=== PATIENT | female | born 1990 | race Caucasian/White ===

== ENCOUNTER 2017-03-16 10:43 | Observation (INO) | payer OTHER ==
[2017-03-16 10:49] VITALS: TEMP 97.5; BMI 44.6
[2017-03-16] MEDS ORDERED: SODIUM CHLORIDE 1,000 ML IV STA (12:21)
--- NOTE | 2017-03-16 12:23 | PDOC ---
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 Patient states that she was driving on the [place] today as she started to feel dizzy as if the highway was moving side to side at 09: 15AM. Patient states that she pulled over and had some water waiting for the dizzy spell to pass. Patient was on the phone with a friend that stated that her speech was slow but she was not slurring. Patient states that she started to feel better and was driving again as she experienced the same symptoms after which she took the next exit and was picked up by family. Patient states that she is not dizzy anymore while in the ED, but reports generalized weakness and feeling floaty. Patient reports a slight headache that is usual for her when she is on her menses. 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 Patient reports significant vision changes over the couple of months. Patient denies any LOC, head trauma or any recent trauma. Pt was in fast track first at 11:15 AM, and then brought over to the core at 12: 15P Pt seen by me when brought over from FT <Genevieve Rodriguez - Last Filed: 03/16/17 12:36> <Yamini Rodrigues - Last Filed: 03/16/17 21:14> - General Chief Complaint: Lightheaded Stated Complaint: DIZZINESS Time Seen by Provider: 03/16/17 11:17 NIH Stroke Scale - Last Known Well Date/Time & Onset Date Last Known Well: 03/16/17 Time Last Known Well: 09:15 - Initial Evaluation Level of consciousness: Alert Ask patient the month and their age: Answers both correctly Ask patient to open & close eyes; make fist and let go: Obeys both correctly Best gaze (horizontal eye movement): Normal Visual field testing: No visual field loss Facial paresis (Show teeth/raise eyebrows/close eyes tight): Normal symmetrical movement Motor Function: Left Arm: Drift Motor Function: Right Arm: Normal (extends arm 90 (or 45) degrees for 10 seconds without drift Motor Function: Left Leg: Normal (extends leg 30 degrees for 5 seconds without drift) Motor Function: Right Leg: Normal (extends leg 30 degrees for 5 seconds without drift) Limb Ataxia: No ataxia Sensory(Use pinprick test arms,legs,trunk,face/side to side): Normal Best language (Describe picture, name items, read sentences): No Aphasia Dysarthria (read several words): Normal articulation Extinction and Inattention: No abnormality - Total Score NIH Stroke Scale Score: 1 <Yamini Rodrigues - Last Filed: 03/16/17 21:14> Past History <Genevieve Rodriguez - Last Filed: 03/16/17 12:38> - Past Medical History Other medical history: BENIGN TUMOR IN PINEAL GLAND - Surgical History Cholecystectomy: Yes - Psycho/Social/Smoking Cessation Hx Suicidal Ideation: No Smoking History: Never smoked Hx Alcohol Use: No Drug/Substance Use Hx: No <aYmini Rodrigues - Last Filed: 03/16/17 21:14> - Past Medical History Allergies/Adverse Reactions: Allergies Allergy/AdvReac Type Severity Reaction Status Date / Time No Known Allergies Allergy Verified 03/16/17 10:52 Home Medications: Ambulatory Orders NK [No Known Home Medication] 03/16/17 *Physical Exam - Vital Signs Last Vital Signs Temp Pulse Resp BP Pulse Ox 97.5 F L 91 H 18 147/69 99 03/16/17 10:43 03/16/17 10:43 03/16/17 10:43 03/16/17 10:43 03/16/17 10:43 <Genevieve Rodriguez - Last Filed: 03/16/17 12:38> - Vital Signs Last Vital Signs Temp Pulse Resp BP Pulse Ox 97.5 F L 91 H 18 147/69 99 03/16/17 10:43 03/16/17 10:43 03/16/17 10:43 03/16/17 10:43 03/16/17 10:43 - Physical Exam Comments: 03/16/17 12:26 Physical exam Last Vital Signs Temp Pulse Resp BP Pulse Ox 97.5 F L 91 H 18 147/69 99 03/16/17 10:43 03/16/17 10:43 03/16/17 10:43 03/16/17 10:43 03/16/17 10:43 GENERAL: The patient is awake, alert, and fully oriented, and in no apparent distress. HEAD: Normal with no signs of trauma. EYES: Pupils equal, round and reactive to light, extraocular movements intact, sclera anicteric, conjunctiva are normal. ENT: nares patent, oropharynx clear without exudates. Moist mucous membranes. NECK: Normal range of motion, supple LUNGS: Breath sounds equal, clear to auscultation bilaterally. No wheezes, and no crackles. HEART: Regular rate and rhythm, normal S1 and S2 without murmur, rub or gallop. ABDOMEN: Soft, nontender, normoactive bowel sounds. No guarding, no rebound. No masses appreciated. EXTREMITIES: Normal range of motion, no edema. No clubbing or cyanosis. No cords, erythema, or tenderness. NEURO: Mental status: The patient is oriented x3. Cranial nerves: Cranial nerves II through XII are intact Motor: Strength is 5 out of 5 in the right upper extremity, and 4 out of 5 in the left upper extremity with a subtle drift. The lower extremities are 5 over 5 in all muscle groups. Sensation: Sensation is intact to light touch throughout. Cerebellar: Qzuzrk-rrpeol-mibh is normal in both upper extremities. Heel-knee- fang is normal in both lower extremities. Gait: Normal. Heel and toe walking and tandem walking causes patient to lose her balance PSYCH: Normal mood, normal affect. 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 Mendoza approved an MRI, and will call neurology NIH stroke scale 1 03/16/17 12:[address] TrejoJinisrr-[id number] is not a TPA candidate This may be a vertebrobasilar migraine Awaiting MRI 03/16/17 15:05 EKG Normal sinus rhythm, with mild sinus arrhythmia Normal AV and IV conduction time Normal QRS duration Normal QTC Nonspecific ST-T is No old EKG is available for comparison at this time 03/16/17 16:05 Case and all results discussed with Dr. Soto-will admit Neurology will see patient in consultation Patient still awaiting MRI/MRA Will check the vertebral arteries, as well as the posterior circulation, as well as her pineal gland tumor, and rule out a punctate stroke or other lesion MRI/MRA results MRI/BRAIN MRI WITH CONTRAST [id number] MRI/BRAIN MRA W/O CONTRAST [id number] MRI/NECK MRA W/O CONTRAST History of tiny tumor. Vertigo. MRI of the brain without and following intravenous contrast. Multiplanar T1- T2 sequences were obtained followed by postcontrast T1 axial, coronal and sagittal images. Compared to prior MRI of the brain dated 12/27/2013 previously described prominent pineal gland is again seen now measuring approximately 10 x 9 without definite interval change in size or appearance. The ventricles and basal cisterns appear unremarkable. There is minimal volume loss which is nonspecific. No other mass lesion, acute infarct or intracranial hemorrhage is identified. On the postcontrast images, no gross abnormal intracranial enhancement is identified. The craniocervical junction appears unremarkable. Flow voids are present within the central intracranial arteries circulation. No suspicious bone marrow abnormal signal is identified. There is minimal mucosal thickening in the ethmoid air cells and maxillary antra with mild to moderate deviation of the nasal septum to the left. Both orbits appear unremarkable. No suspicious marrow abnormal signal is identified. Impression : Prominent pineal gland again seen with peripheral enhancement, without interval change. Otherwise, no acute intracranial pathology or abnormal enhancement is identified. MRA of the brain. A noncontrast MRA of the brain was performed utilizing 3-D [id number]-[id number] technique. Source and MIP images were reviewed. In the anterior circulation, no gross focal stenosis, aneurysm or major artery cutoff is seen. Note is made of a tortuous distal left internal carotid artery/looping prior to entering the skull base which is a normal variant. A right and left posterior communicating artery are present. In the posterior circulation, the vertebrobasilar junction, basilar artery and tip appear unremarkable. Both posterior cerebral and superior cerebellar arteries appear unremarkable. Impression: No gross focal stenosis, aneurysm, major artery cutoff or vascular malformation is identified within the central intracranial arterial circulation. MRA of the neck without intravenous contrast 2D and 3-D time of flight technique was utilized. Source and MIP images were reviewed . The vertebral arteries appear unremarkable. The common carotid artery and its bifurcation appears unremarkable without evidence of stenosis, bilaterally. Impression: Unremarkable examination. There is no gross evidence of stenosis at the common carotid bifurcation, bilaterally. _ Laboratory Results - last 24 hr 03/16/17 03/16/17 03/16/17 12:00 12:31 12:31 WBC 8.2 RBC 4.96 Hgb 14.2 Hct 42.8 MCV 86.3 MCHC 33.1 RDW 13.9 Plt Count 223 MPV 8.4 Sodium 141 Potassium 3.9 Chloride 105 Carbon Dioxide 30 Anion Gap 6 L BUN 10 Creatinine 0.8 Creat Clearance w eGFR > 60 Random Glucose 82 Calcium 9.0 Total Bilirubin 0.3 AST 18 ALT 30 Alkaline Phosphatase 98 Total Protein 7.8 Albumin 4.1 Urine Color Colorless Urine Appearance Clear Urine pH 7.0 Ur Specific [place] 1.010 Urine Protein Negative Urine Glucose (UA) Negative Urine Ketones Negative Urine Blood 2+ H Urine Nitrite Negative Urine Bilirubin Negative Urine Urobilinogen Negative Ur Leukocyte Esterase Negative Urine RBC <1 Urine WBC None Urine HCG, Qual Negative Neuro and Dr Soto coming to see pt <Yamini Rodrigues - Last Filed: 03/16/17 21:14> *DC/Admit/Observation/Transfer <Genevieve Rodriguez - Last Filed: 03/16/17 12:38> - Discharge Dispostion Admit: Yes <Yamini Rodrigues - Last Filed: 03/16/17 21:14> Diagnosis at time of Disposition: Dizziness, Weakness
[2017-03-16 12:31] LABS: URINE APPEARANCE CLEAR; URINE BILIRUBIN NEGATIVE (NEGATIVE); URINE COLOR COLORLESS; URINE GLUCOSE (UA) NEGATIVE (NEGATIVE); URINE KETONE NEGATIVE (NEGATIVE); URINE LEUK ESTERASE NEGATIVE (NEGATIVE); URINE NITRITE NEGATIVE (NEGATIVE); URINE PROTEIN NEGATIVE (NEGATIVE); URINE UROBILINOGEN NEGATIVE E.U./dl (0.2-1.0)
[2017-03-16 12:42] LABS: URINE BLOOD 2+ (NEGATIVE)
[2017-03-16 12:46] LABS: MCH 28.6 pg (25.7-33.7); MCHC 33.1 g/dl (32.0-36.0); MEAN CELL VOLUME 86.3 fl (80-96); MEAN PLT VOLUME 8.4 fl (7.5-11.1); PLATELET COUNT 223 K/MM3 (134-434); RDW 13.9 % (11.6-15.6); WHITE BLOOD COUNT 8.2 K/mm3 (4.0-10.0)
[2017-03-16 12:57] LABS: URINE RBC <1 /hpf (0-3)
[2017-03-16 13:24] LABS: ALBUMIN 4.1 g/dl (3.4-5.0); ALK PHOS 98 U/L (45-117); ANION GAP 6 (8-16); BILIRUBIN,TOTAL 0.3 mg/dL (0.2-1.0); CO2 30 mmol/L (21-32); COCKROFT - GAULT 204.5015; CREATININE 0.8 mg/dL (0.55-1.02); GLUCOSE,RANDOM 82 mg/dL (74-106); SGOT/AST 18 U/L (15-37); SGPT/ALT 30 U/L (12-78); TOT PROT 7.8 g/dl (6.4-8.2)
[2017-03-16 15:22] VITALS: BP 125/69; PULSE 60
--- NOTE | 2017-03-16 16:44 | EKG ---
Test Reason : Blood Pressure : / mmHG Vent. Rate : 067 BPM Atrial Rate : 067 BPM P-R Int : 178 ms QRS Dur : 104 ms QT Int : 400 ms P-R-T Axes : 027 009 -01 degrees QTc Int : 422 ms NORMAL SINUS RHYTHM WITH SINUS ARRHYTHMIA NONSPECIFIC T WAVE ABNORMALITY ABNORMAL ECG NO PREVIOUS ECGS AVAILABLE Confirmed by SOPHIA SHELLEY, LIV ([id number]) on 03/16/2017 4:43:48 PM Referred By: Confirmed By:LIV CORTES MD
--- NOTE | 2017-03-16 19:55 | CONSULT ---
Consult - text type - Consultation Consultation Note: NEUROLOGY CONSULTATION is greatly appreciated: This 26 yo RH s woman has long h/o migraine headache. These occur, predictably, with her menses and approximately 1/week. Relieved in the past on topiramate but D/C'ed due to blurred vision. Headaches can be present in the morning or occur without warning. Usually Left sided throbbing headaches with photophobia. This AM awoke with dull occipital headache which was anticipated with her menses. On the way to work had unusual visual sensation of the road moving associated with dizziness. This lasted about 10 minutes but recurred off and on for about 1 hr. MRI of Brain and MR Angio of brain and neck (reviewed): All normal studies. Exam: Neck supple, Cor reg. Obese (265 lbs). No evidence of head trauma. NEURO: MS/speech: Normal CN II-XII: Normal without nystagmus Motor: No drift or tremor. Normal grasps and FERN's. Normal reflexes. Toes downgoing. Coord: No FTN dystaxia Sensory: Normal. Romberg - Gait: Normal including tandem. IMP: Normal Neurological exam. Migraine Headaches (catamenial migraines). Today's episode was most likely a vertebro-basilar migraine with vertigo (and/or visual scotoma) as an aura. Suggest: Observe x 24 hrs. Begin topiramate 25 mg PO q12 hrs x 1 week and then increase to 50 mg BID. Neuro f/u as out patient. Thank you very much, Harris Trejo MD
--- NOTE | 2017-03-16 20:48 | HP ---
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 Pt initially presented to the ER w/ generalized weakness. This was accompanied w/ vertigo and headache wc occurred while she was driving. Pt pulled off to the side of the road and called a friend. There was also a question if pt had some slurred speech bc she was speaking on the phone to a friend who noticed this. When this episode occurred again she came to ER. In the ER pt had MRI brain and MRA neck wc were normal. History Source: Patient - Smoking History Smoking history: Never smoked - Alcohol/Substance Use Hx Alcohol Use: No Home Medications - Allergies Allergies/Adverse Reactions: Allergies Allergy/AdvReac Type Severity Reaction Status Date / Time No Known Allergies Allergy Verified 03/16/17 10:52 - Home Medications Home Medications: Ambulatory Orders NK [No Known Home Medication] 03/16/17 Family Disease History - Family Disease History Family History: Unremarkable Review of Systems - Review of Systems Constitutional: reports: Weakness Eyes: reports: No Symptoms HENT: reports: No Symptoms Neck: reports: No Symptoms Cardiovascular: reports: No Symptoms Respiratory: reports: No Symptoms Gastrointestinal: reports: No Symptoms Genitourinary: reports: No Symptoms Neurological: reports: Headache Physical Examination Vital Signs: Vital Signs Temperature 97.5 F L 03/16/17 10:43 Pulse Rate 60 03/16/17 15:21 Respiratory Rate 17 03/16/17 15:21 Blood Pressure 125/69 03/16/17 15:21 O2 Sat by Pulse Oximetry (%) 100 03/16/17 15:21 Constitutional: Yes: Well Nourished Eyes: Yes: WNL HENT: Yes: WNL Neck: Yes: WNL Cardiovascular: Yes: WNL Respiratory: Yes: WNL Gastrointestinal: Yes: WNL, Normal Bowel Sounds, Soft Musculoskeletal: Yes: WNL Extremities: Yes: WNL Edema: No Peripheral Pulses WNL: No Neurological: Yes: WNL, Alert, Oriented ...Motor Strength: WNL Problem List - Problems (1) Dizziness Assessment/Plan: Will admit pt and observe Neuro consult called Cont IVF Code(s): R42 - DIZZINESS AND GIDDINESS (2) Headache Assessment/Plan: Neuro consult Pt is now asymptomatic Code(s): R51 - HEADACHE
[2017-03-16] MEDS ORDERED: DEXTROSE 5%-0.45% SALINE 1,000 ML IV SCH (21:00)
[2017-03-16] MEDS ORDERED: TOPIRAMATE 25 MG TABLET (FP) PO SCH (22:00)
--- NOTE | 2017-03-18 15:39 | DS ---
Physical Examination Vital Signs: Vital Signs Temperature 97.5 F L 03/16/17 10:43 Pulse Rate 60 03/16/17 15:21 Respiratory Rate 17 03/16/17 15:21 Blood Pressure 125/69 03/16/17 15:21 O2 Sat by Pulse Oximetry (%) 100 03/16/17 15:21 Constitutional: Yes: Well Nourished Eyes: Yes: WNL HENT: Yes: WNL Neck: Yes: WNL Cardiovascular: Yes: WNL Respiratory: Yes: WNL, Regular, CTA Bilaterally Discharge Summary Reason For Visit: DIZZINESS,WEAKNESS Current Active Problems Dizziness (Acute) Headache (Acute) Weakness (Acute) Hospital Course: Pt is a 26 y/o femal who was admitted for SCHULZ/dizziness/weakness. Pt had MRI brain and MRA neck wc were unremarkable. Pt was seen by neuro who recommended observation for 24 hrs. However pt signed out AMA. - Instructions Disposition: AGAINST MEDICAL ADVICE - Home Medications Comprehensive Discharge Medication List: Ambulatory Orders NK [No Known Home Medication] 03/16/17
== END 2017-03-16 21:55 | disposition left against medical advice (07) ==
LOC: JERFT 10:43 → JER 10:43 → INTOOBSV 16:06 → JERBED 16:06 → UNDOADMOB 16:06 → J8W 19:15 → JERBED 19:15 → J8W 20:45 → JERBED 20:45 → UNDODISOB 21:55
PROVIDERS: ADMIT Internal Medicine; ATTEND Internal Medicine
PROC: 3E0337Z Introduction of Electrolytic and Water Balance Substance into Peripheral Vein, Percutaneous Approach (ICD-10-PCS; principal; 2017-03-16)
DX: G43.909 Migraine, unspecified, not intractable, without status migrainosus (principal); R42 Dizziness and giddiness; R53.1 Weakness; D35.4 Benign neoplasm of pineal gland
CPT/HCPCS: 36415; 70544-TC; 70547-TC; 70552-TC; 80053; 81003; 81015; 84703; 85027; 86618; 87086; 93005; 93010; 99282-25; A9576; G0378